=== PATIENT | male | born 1990 | race Caucasian/White ===

== ENCOUNTER 2018-04-18 00:50 | Emergency (ER) | payer BC, OTHER ==
[~2018-04-18] VITALS: Ht 182.9 cm; Wt 77.3 kg
[2018-04-18 00:50] VITALS: BP 156/97; PULSE 93; RESP 18; TEMP 98.3; O2SAT 99
[~2018-04-18 00:50] MED LIST: DICL75 PO; Z.0.NO CURRENT MEDS
[2018-04-18] MEDS ORDERED: METH40TA PO (01:12)
[2018-04-18] MEDS ORDERED: LIDOCAINE HCL 1% PF 30 ML VIAL ONE (01:28)
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
[2018-04-18 04:04] VITALS: BP 144/91; PULSE 83; RESP 16; O2SAT 97
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
== END 2018-04-18 04:44 | disposition home or self-care (01) ==
LOC: PHED 00:50
DX: S01.81XA Laceration without foreign body of other part of head, initial encounter (principal); Y04.2XXA Assault by strike against or bumped into by another person, initial encounter; Z79.899 Other long term (current) drug therapy; Z87.891 Personal history of nicotine dependence
CPT/HCPCS: 12052; 70486